=== PATIENT | male | born 1960 | race African-American/Black ===

== ENCOUNTER 2017-10-27 00:24 | Inpatient (IN) | payer OTHER ==
[2017-10-27 01:25] LABS: ADD MAN DIFF? NO
[2017-10-27 01:34] LABS: BASOPHILS % 0.7 % (0.0-2.0); EOSINOPHILS # 0.2 10^3/ul (0.0-0.5); EOSINOPHILS % 4.8 % (0.0-7.0); HEMATOCRIT 40.3 % (42.0-52.0); HEMOGLOBIN 13.1 g/dl (14.0-18.0); LYMPHOCYTES # 2.1 10^3/ul (0.8-2.9); LYMPHOCYTES % 47.6 % (15.0-51.0); MEAN CORPUSCULAR HEMOGLOBIN 30.5 pg (29.0-33.0); MEAN CORPUSCULAR HGB CONC 32.5 g/dl (32.0-37.0); MEAN CORPUSCULAR VOLUME 93.9 fl (82.0-101.0); MEAN PLATELET VOLUME 10.9 fl (7.4-10.4); MONOCYTE # 0.4 10^3/ul (0.3-0.9); MONOCYTES % 9.2 % (0.0-11.0); NEUTROPHIL # 1.6 10^3/ul (1.6-7.5); NEUTROPHILS % 37.5 % (39.0-77.0); PLATELET COUNT 203 10^3/UL (140-415); RED BLOOD COUNT 4.29 10^6/ul (4.70-6.10); RED CELL DISTRIBUTION WIDTH 11.8 % (11.5-14.5)
[2017-10-27 01:34] LABS: WHITE BLOOD COUNT 4.3 10^3/ul (4.8-10.8)
[2017-10-27 01:52] LABS: ANION GAP 11 (8-16); BLOOD UREA NITROGEN 21 mg/dl (7-20); CALCIUM 9.8 mg/dl (8.4-10.2); CARBON DIOXIDE 33 mmol/L (21-31); CHLORIDE 105 mmol/L (97-110); CREATININE 1.06 mg/dl (0.61-1.24); GLUCOSE 100 mg/dl (70-220); POTASSIUM 3.8 mmol/L (3.5-5.1); SODIUM 145 mmol/L (135-144)
[2017-10-27 02:11] LABS: TROPONIN-I < 0.012 ng/ml (0.00-0.12)
[2017-10-27] MEDS: ONDANSETRON 4 MG INJ IV (02:14)
[2017-10-27] MEDS: morphine 4 MG/ML VIAL IV (02:14)
[2017-10-27] MEDS: HYDROmorphONE 0.5 MG/0.5 ML SYG IV (03:17)
[2017-10-27] MEDS ORDERED: morphine 2 MG INJ IV (07:00)
[2017-10-27] MEDS ORDERED: MAGNESIUM HYDROXIDE 30ML CUP PO (07:00)
[2017-10-27] MEDS ORDERED: NITROGLYCERIN (SL) 0.4 MG TAB SL (07:00)
[2017-10-27] MEDS ORDERED: BISACODYL 10 MG SUPP PR (07:00)
[2017-10-27] MEDS ORDERED: ACETAMINOPHEN 325 MG TAB PO (07:00)
[2017-10-27] MEDS ORDERED: DOCUSATE SODIUM 100 MG CAP PO (07:00)
[2017-10-27] MEDS ORDERED: ONDANSETRON 4 MG INJ IV (07:00)
[2017-10-27] MEDS ORDERED: NACL 0.9% 3 ML SYG IV (07:00)
[2017-10-27] MEDS: PANTOPRAZOLE (EC) 40 MG TAB PO (07:17)
[2017-10-27 07:28] LABS: ALANINE AMINOTRANSFERASE 41 IU/L (13-69); ALBUMIN/GLOBULIN RATIO 1.14; ALKALINE PHOSPHATASE 63 IU/L (42-121); ANION GAP 11 (8-16); ASPARTATE AMINO TRANSFERASE 25 IU/L (15-46); BILIRUBIN,INDIRECT 1.1 mg/dl (0-1.1); BILIRUBIN,TOTAL 1.1 mg/dl (0.2-1.3); BLOOD UREA NITROGEN 20 mg/dl (7-20); CALCIUM 9.6 mg/dl (8.4-10.2); CARBON DIOXIDE 33 mmol/L (21-31); CHLORIDE 105 mmol/L (97-110); CHOLESTEROL 166 mg/dl (100-200); CREATININE 0.98 mg/dl (0.61-1.24); GLUCOSE 114 mg/dl (70-220); HDL CHOLESTEROL 55 mg/dl (28-71); LDL CHOLESTEROL,CALCULATED 103 mg/dl; POTASSIUM 4.1 mmol/L (3.5-5.1); SODIUM 145 mmol/L (135-144); TOTAL PROTEIN 7.5 g/dl (6.1-8.1); TRIGLYCERIDES 38 mg/dl (0-149)
[2017-10-27 07:52] LABS: FREE T4 (FREE THYROXINE) 1.21 ng/dl (0.64-1.79)
[2017-10-27 07:58] LABS: THYROID STIMULATING HORMONE 0.888 MIU/L (0.465-4.680)
[2017-10-27 08:45] LABS: CREATINE KINASE 74 IU/L (23-200)
[2017-10-27] MEDS: ASPIRIN 81 MG TAB PO (08:47)
[2017-10-27] MEDS: HYDROCHLOROTHIAZIDE 25 MG TAB PO (08:47)
[2017-10-27] MEDS: ENOXAPARIN 40 MG/0.4 ML SYG SC (08:48)
[2017-10-27] MEDS: PROPRANOLOL 10 MG TAB PO ×2 (08:48→08:49)
[2017-10-27 08:59] LABS: CK INDEX 0.3
[2017-10-27 09:02] LABS: CK-MB < 0.22 ng/ml (0.0-2.4); TROPONIN-I < 0.012 ng/ml (0.00-0.12)
[2017-10-27] MEDS: REGADENOSON 0.4 MG/5 ML SYG (14:30)
[2017-10-27] MEDS ORDERED: RANITIDINE 150 MG TAB PO (21:00)
[2017-10-28] MEDS ORDERED: PANTOPRAZOLE (EC) 40 MG TAB PO (06:00)
== END 2017-10-27 16:47 | disposition home or self-care (01) | DRG 313 ==
LOC: E/R 00:24 → MS3 05:55
PROC: C22G1ZZ Tomographic (Tomo) Nuclear Medicine Imaging of Myocardium using Technetium 99m (Tc-99m) (ICD-10-PCS; principal; 2017-10-27)
DX: R07.89 Other chest pain (principal); I10 Essential (primary) hypertension; K21.9 Gastro-esophageal reflux disease without esophagitis; Z82.49 Family history of ischemic heart disease and other diseases of the circulatory system; M54.9 Dorsalgia, unspecified
CPT/HCPCS: 36415; 71045; 78452; 80048; 80053; 80061; 82550; 82553; 84439; 84443; 84484; 85025; 93005; 93017; 93306; 96372; 96374; 96375; 99285-25